=== PATIENT | female | born 1985 | race Caucasian/White ===

== ENCOUNTER → 2019-02-28 | Outpatient (CLI) | payer BC ==
[~2019-02-28] MED LIST: BACTRIM DS 8001 TA1 PO; CELEXA20 MG PO; CIPRO250 MG PO; LOMOTIL 0.025 M1 TAB PO; MACROBID100 M1 PO; MOTRIN800 MG PO; PHENERGAN25 M1 PO; PROZAC20 MG PO; VICODIN 5/500 505 MG PO; ZOFRAN ODT4 MG SL
== END | disposition home or self-care (01) ==
LOC: LAB 14:59 → RAD 14:59
DX: M51.37 Other intervertebral disc degeneration, lumbosacral region (principal); M85.89 Other specified disorders of bone density and structure, multiple sites; M79.605 Pain in left leg

== ENCOUNTER 2019-09-21 19:10 | Emergency (ER) | payer BC ==
[~2019-09-21] VITALS: Ht 175.2 cm; Wt 90.7 kg
[2019-09-21] MEDS ORDERED: VISTARIL25 M2 PO (20:25)
== END 2019-09-21 20:24 | disposition home or self-care (01) ==
LOC: ED 19:10
DX: F41.9 Anxiety disorder, unspecified (principal); F17.200 Nicotine dependence, unspecified, uncomplicated; Z79.899 Other long term (current) drug therapy